=== PATIENT | male | born 1990 | race Caucasian/White ===

== ENCOUNTER 2017-02-15 11:57 | Emergency (ER) | payer OTHER ==
[~2017-02-15] VITALS: Ht 180.3 cm; Wt 88.5 kg
[~2017-02-15 11:57] MED LIST: PREDNISONE 20MG20 MG PO; ROBITUSSIN W/CO10 ML PO
[2017-02-15] MEDS ORDERED: OMEPRAZOLE20 M2 PO (12:32)
[2017-02-15] MEDS ORDERED: ALLEGRA ALLERG180 M1 PO (12:32)
--- NOTE | 2017-02-15 12:46 | ED AMS/SEIZURE/WEAK/DIZZY ---
History of Present Illness General Chief Complaint: General Adult Stated Complaint: "VERTIGO"PER PT Source: patient, family, old records Exam Limitations: no limitations Vital Signs & Intake/Output Vital Signs & Intake/Output Vital Signs Date Time Temp Pulse Resp B/P B/P Pulse O2 O2 Flow FiO2 Mean Ox Delivery Rate 02/15 1417 98.0 70 18 128/74 97 Room Air 02/15 1327 Room Air 02/15 1206 97.9 69 16 136/87 98 Room Air Allergies Coded Allergies: Penicillins (Intermediate, RASH 02/15/17) Reconcile Medications Fexofenadine HCl (Pricila Allergy) 180 MG TABLET 1 TAB PO DAILY ALLERGIES ( Reported) Meclizine HCl 25 MG TABLET 1 TAB PO Q8 PRN dizziness Metoclopramide HCl (Reglan) 10 MG TABLET 1 TAB PO Q6 PRN nausea Omeprazole 20 MG CAPSULE.DR 1 CAP PO DAILY GERD (Reported) Triage Note: PT TO ED COMPLAINING OF "REALLY BAD CASE OF VERTIGO" A&0X3. AMBULATORY TO TRIAGE. +DIZZINESS, +NAUSEA. HX OF SAME "BUT WAY WORSE THAN OTHER TIMES." Triage Nurses Notes Reviewed? yes HPI: Patient is a 26-year-old male presents complaining of severe dizziness. Symptoms onset 2-3 days ago that were mild to moderate. Dizziness has become severe over the past 24 hours. Sensation is a room spinning sensation that worsens with movement and improves with lying down. When patient attempts to ambulate and feels off balance and that he is going to fall over. Patient has been taking Pricila daily with no improvement. Positive associated nausea. Patient denies head injury, ear pain, ringing in his ears, chest pain, palpitations, vomiting Past History Travel History Traveled to [place] past 21 day No Medical History Any Pertinent Medical History? see below for history Neurological: NONE EENT: NONE Cardiovascular: NONE Respiratory: NONE Gastrointestinal: NONE Hepatic: NONE Renal: NONE Musculoskeletal: NONE Psychiatric: NONE Endocrine: NONE Blood Disorders: NONE Cancer(s): leukemia Surgical History Surgical History: non-contributory Psychosocial History What is your primary language Bengali Tobacco Use: Quit >30 days ago ETOH Use: 2-3 TIMES PER WEEK Illicit Drug Use: denies illicit drug use Family History Hx Contributory? No Review of Systems Review of Systems Constitutional: Reports: malaise. Denies: chills, fever. EENTM: Reports: no symptoms. Respiratory: Denies: cough, short of breath. Cardiovascular: Denies: chest pain. GI: Reports: nausea. Denies: abdominal pain, vomiting. Genitourinary: Reports: no symptoms. Musculoskeletal: Reports: no symptoms. Skin: Reports: no symptoms. Neurological/Psychological: Reports: see HPI. Denies: headache, numbness. Hematologic/Endocrine: Denies: bruising, bleeding. Immunologic/Allergic: Denies: splenectomy. Physical Exam Physical Exam General Appearance: well developed/nourished, alert, awake Head: atraumatic, normal appearance Eyes: Bilateral: PERRL, EOMI, other (positive nystagmus horizontal). Ears, Nose, Throat: normal pharynx, hearing grossly normal, moderate cerumen bilateral external auditory canals. Tympanic membranes normal bilaterally Neck: normal inspection, supple, full range of motion, no midline tenderness Respiratory: normal breath sounds, chest non-tender, no respiratory distress, lungs clear Cardiovascular: regular rate/rhythm Peripheral Pulses: 2+ dorsalis pedis (R), 2+ dorsalis pedis (L) Gastrointestinal: soft, non-tender Back: normal range of motion Extremities: normal range of motion Neurologic/Psych: no motor/sensory deficits, awake, alert, oriented x 3, normal gait, normal mood/affect, pyrotechnic mixer II-XII nml as tested, normal [id number] movements of bilateral upper and lower extremities Skin: intact, normal color, warm/dry Lymphatic: no anterior cervical alana Core Measures ACS in differential dx? No CVA/TIA Diagnosis: No Severe Sepsis Present: No Septic Shock Present: No Progress Differential Diagnosis: arrythmia, alcohol intoxication, anemia, benign positional vertigo, CVA/stroke, dehydration, drug intoxication, encephalitis, electrolyte imbalance, intracranial Hem., intracranial mass/tumor, labrynthitis, postural hypotension, post-traumatic vertigo, subarachnoid Hem., vertebrobasilar insuff Plan of Care: Orders Procedure Date/time Status COMPREHENSIVE METABOLIC PANEL 02/15 1236 Complete CBC WITHOUT DIFFERENTIAL 02/15 1236 Complete Laboratory Tests 02/15/17 1254: Anion Gap 14, Estimated GFR > 60, BUN/Creatinine Ratio 19.0, Glucose 88, Calcium 9.3, Total Bilirubin 1.8 H, AST 25, ALT 49, Alkaline Phosphatase 66, Total Protein 7.8, Albumin 4.5, Globulin 3.3, Albumin/Globulin Ratio 1.4, CBC w Diff NO MAN DIFF REQ, RBC 5.84, MCV 81.0, MCH 27.4, RDW 13.4, MPV 8.1, Gran % 55.2, Lymphocytes % 34.5, Monocytes % 9.1, Eosinophils % 0.9, Basophils % 0.3, Absolute Granulocytes 2.8, Absolute Lymphocytes 1.8, Absolute Monocytes 0.5, Absolute Eosinophils 0, Absolute Basophils 0, PUBS MCHC 33.9 02/15/2017 1:25:07 PM: Patient reports symptoms gradually improving. Awaiting results of labs. 02/15/2017 2:32:54 PM: Patient feeling improved. Continues with mild dizziness. Symptoms appear consistent with peripheral vertigo. Neuro imaging deferred. Patient appears stable for discharge. (JOSSELINE PEPPER,NANCY) Initial ED EKG: none Departure Departure Time of Disposition: 1433 Disposition: HOME OR SELF CARE Condition: Stable Clinical Impression Primary Impression: Vertigo Referrals: JEN AGUILERA,ABDIAZIZ BRUSH (PCP/Family) Additional Instructions: Follow-up with your doctor at the [facility] for further evaluation. Call today for appointment. You may also contact Dr. Rosales(ear nose and throat doctor) if no improvement in 2-3 days. Return to the ER if worsening of symptoms. Departure Forms: Customer Survey General Discharge Information Prescriptions: Current Visit Scripts Meclizine HCl 1 TAB PO Q8 PRN dizziness #12 TAB Metoclopramide HCl (Reglan) 1 TAB PO Q6 PRN nausea #12 TAB
[2017-02-15 13:12] LABS: ABSOLUTE BASOPHIL COUNT 0 /CUMM (0.0-0.2); ABSOLUTE EOSINOPHIL COUNT 0 /CUMM (0.0-0.7); ABSOLUTE GRANULOCYTE CT 2.8 /CUMM (1.4-6.5); ABSOLUTE LYMPH COUNT 1.8 /CUMM (1.2-3.4); ABSOLUTE MONOCYTE COUNT 0.5 /CUMM (0.10-0.60); BASOPHIL % 0.3 % (0.0-2.0); EOSINOPHIL % 0.9 % (0-5); GRANULOCYTE % 55.2 % (42.2-75.2); HEMATOCRIT 47.3 % (42-52); MEAN CORPUSCULAR HGB 27.4 PG (27.0-31.0); MEAN CORPUSCULAR HGB CONC 33.9 G/DL (33.0-37.0); MEAN PLATELET VOLUME 8.1 FL (7.4-10.4); PLATELET COUNT 186 /CUMM (130-400); RBC DISTRIBUTION WIDTH 13.4 % (11.5-14.5); RED BLOOD CELL CT 5.84 /CUMM (4.70-6.10); WHITE BLOOD CELL COUNT 5.1 /CUMM (4.8-10.8)
[2017-02-15 14:17] VITALS: BP 128/74
[2017-02-15] MEDS ORDERED: REGLAN10 M1 PO (14:34)
[2017-02-15] MEDS ORDERED: MECLIZINE HCL25 MG PO (14:34)
== END 2017-02-15 14:37 ==
LOC: ERH 11:57
PROVIDERS: Physician Assistant
DX: R42 Dizziness and giddiness (principal)
CPT/HCPCS: 96361; 96374; J2765